=== PATIENT | female | born 1940 | race Caucasian/White ===

== ENCOUNTER 2017-01-31 16:04 | Emergency (ER) | payer OTHER ==
--- NOTE | ~2017-01-31 | HM ---
Unit #: [id number] #: [id number] Patient: CAMILO BROWN [id number] [address] [address] [id number] MR#: [id number] NAME: CAMILO BROWN. : 1940 SEX: F STUDY DATE/TIME: 02/07/2017 UNIT: [facility] ROOM: STUDY DESCRIPTION: Holter Attending Physician: Xavier Tracy M.D. Primary Care Physician: Edith Izquierdo M.D. CARDIOLOGY REPORT EXAM Holter DATE APPLIED 01/31/2017 DATE SCANNED 02/04/[address] Tracy READ BY Dr. Park INDICATION Bradycardia COMMENTS The patient's Holter was monitored for 24 hours. The patient's underlying rhythm is atrial fibrillation with average heart rate of 37 beats per minute. The patient heart rate ranged from 27 beats per minute to 47 beats per minute. Longest pause was 1.76 seconds. The patient has few PVCs and PACs, mostly PVCs given in nature. 53% of the time the patient was in bradycardia. CONCLUSION Underlying rhythm is atrial fibrillation. The patient has sick sinus syndrome. This patient should be evaluated for pacemaker. Dictated by... Julia Ramesh/elliot TD: 02/08/2017 05:11 JOB #: [id number] Unit #: [id number] #: [id number] Patient: CAMILO BROWN CARDIOLOGY REPORT X Jai Gonzalez MD HOLTER MONITOR REPORT
[2017-01-31 15:26] LABS: BASOPHIL# 0.1 X10e3 (0-0.3); BASOPHIL% 1.1 % (0-2.5); DIFF IND NO; EOSINOPHIL# 0.4 X10e3 (0-0.7); HEMATOCRIT 39.9 % (35.0-45.0); HEMOGLOBIN 13.6 gm/dL (12.0-16.0); LYMPHOCYTE# 1.8 X10e3 (1.0-3.5); LYMPHOCYTE% 24.4 % (17.0-45.0); MEAN CELL VOLUME 87.7 FL (83-96); MEAN CORPUSCULAR HEMOGLOBIN 29.9 PG (28-34); MEAN CORPUSCULAR HGB CONC 34.2 g/dL (30-36); MONOCYTE# 0.7 X10e3 (0-1.0); MONOCYTE% 9.9 % (3.0-12.0); NEUTROPHIL# 4.4 X10e3 (1.5-7.1); NEUTROPHIL% 59.6 % (40-75); PLATELET COUNT 292 X10e3 (140-420); RED BLOOD COUNT 4.55 X10e (3.90-5.30); RED CELL DISTRIBUTION WIDTH 15.2 % (11.0-15.5); WHITE BLOOD COUNT 7.5 X10e3 (4.0-10.5)
[2017-01-31 15:59] LABS: ALBUMIN SERUM 4.1 g/dL (3.5-5.0); BILIRUBIN, DIRECT 0.1 mg/dL (0.0-0.2); BILIRUBIN,INDIRECT 0.9 mg/dL (0.0-0.9); BUN/CREATININE RATIO 20.9; CALCIUM SERUM 9.6 mg/dL (8.4-10.2); CREATININE SERUM 1.1 mg/dL (0.6-1.4); GLOM FILT RATE Estimated 51.2 mL/min (>60); MAGNESIUM 1.7 mg/dL (1.6-3.0); POTASSIUM 3.4 mmol/L (3.5-5.1); PROTEIN TOTAL SERUM 7.2 g/dL (6.0-8.3)
== END 2017-01-31 16:49 | disposition home or self-care (01) ==
LOC: CED 16:04
PROVIDERS: Emergency Medicine
DX: R00.1 Bradycardia, unspecified (principal); E87.6 Hypokalemia
CPT/HCPCS: 36415; 80048; 80076; 83735; 85025; 85610; 85730; 93225; 93226; 99283

== ENCOUNTER → 2017-01-31 | Outpatient (CLI) | payer OTHER ==
--- NOTE | ~2017-01-31 | EKG ---
PATIENT: CAMILO BROWN UNIT #: [id number] Ventricular Rate: 38 BPM Atrial Rate: 40 BPM QRS Duration: 168 ms Q-T Interval: 514 ms QTC Calculation(Bezet): 408 ms Calculated R [place]: -66 degrees Calculated T [place]: 97 degrees Diagnosis Line: Idioventricular rhythm Diagnosis Line: Left axis deviation Diagnosis Line: Left bundle branch block Diagnosis Line: Abnormal ECG Diagnosis Line: No previous ECGs available Diagnosis Line: Confirmed by MANJEET WILKS MD ([id number]) on Diagnosis Line: 01/31/2017 4:16:39 PM INTERPRETING MD: EFE CORTES
== END | disposition home or self-care (01) ==
LOC: CECH 13:26
DX: R01.1 Cardiac murmur, unspecified (principal); I44.7 Left bundle-branch block, unspecified; R94.31 Abnormal electrocardiogram [ECG] [EKG]; I51.7 Cardiomegaly
CPT/HCPCS: 93005; 93306